=== PATIENT | male | born 1980 | race Caucasian/White ===

== ENCOUNTER 2017-09-23 09:28 | Outpatient (CLI) | payer MEDICAID ==
[~2017-09-23 09:28] MED LIST: BUSP10TA11 PO; CLIN-80 PO; DIVA-81 PO; ESCI20TA38 PO; GABA-338 PO; HYDR12.522 PO; LISI40TA4 PO; LORA-660 PO; METO200T3 PO; MORP30CP13 PO; NAS0.025NS NS; ZOLP5TAB8 PO
[2017-09-23] MEDS ORDERED: HYDR-565 PO (12:13)
[2017-09-23] MEDS ORDERED: METF500T PO (12:14)
[2017-09-23] MEDS ORDERED: silver sulfadiazine cream 50gm TP ONE (12:27)
== END 2017-09-23 12:55 | disposition home or self-care (01) ==
LOC: WOUND CARE 09:28 → EDSTATUS 10:00 → WOUND CARE 12:55
PROVIDERS: ATTEND Surgery
DX: E11.622 Type 2 diabetes mellitus with other skin ulcer (principal); L89.311 Pressure ulcer of right buttock, stage 1; L98.411 Non-pressure chronic ulcer of buttock limited to breakdown of skin; L97.821 Non-pressure chronic ulcer of other part of left lower leg limited to breakdown of skin; L97.811 Non-pressure chronic ulcer of other part of right lower leg limited to breakdown of skin; E11.65 Type 2 diabetes mellitus with hyperglycemia; E11.40 Type 2 diabetes mellitus with diabetic neuropathy, unspecified; I87.2 Venous insufficiency (chronic) (peripheral); I89.0 Lymphedema, not elsewhere classified; Z79.899 Other long term (current) drug therapy
CPT/HCPCS: 29581; 36416; 82948; 99215; A6212; A6223; A6441

== ENCOUNTER 2017-09-30 08:35 | Outpatient (CLI) | payer MEDICAID ==
[~2017-09-30 08:35] MED LIST changes: -CLIN-80 PO; +HYDR-565 PO; +METF500T PO; -MORP30CP13 PO
== END 2017-09-30 11:08 | disposition home or self-care (01) ==
LOC: WOUND CARE 08:35
PROVIDERS: ATTEND Surgery
DX: E11.622 Type 2 diabetes mellitus with other skin ulcer (principal); L89.311 Pressure ulcer of right buttock, stage 1; L98.411 Non-pressure chronic ulcer of buttock limited to breakdown of skin; L97.821 Non-pressure chronic ulcer of other part of left lower leg limited to breakdown of skin; L97.811 Non-pressure chronic ulcer of other part of right lower leg limited to breakdown of skin; E11.65 Type 2 diabetes mellitus with hyperglycemia; E11.40 Type 2 diabetes mellitus with diabetic neuropathy, unspecified; I87.2 Venous insufficiency (chronic) (peripheral); I89.0 Lymphedema, not elsewhere classified; Z79.899 Other long term (current) drug therapy
CPT/HCPCS: 29581; 36416; 82948; 93970; A6212; A6441

== ENCOUNTER 2017-10-07 08:25 | Outpatient (CLI) | payer MEDICAID | END 2017-10-07 10:15 | disposition home or self-care (01) | LOC: WOUND CARE 08:25 → EDSTATUS 08:30 → WOUND CARE 10:15 | PROVIDERS: ATTEND Surgery | DX: E11.622 Type 2 diabetes mellitus with other skin ulcer (principal); L89.311 Pressure ulcer of right buttock, stage 1; L98.411 Non-pressure chronic ulcer of buttock limited to breakdown of skin; L97.821 Non-pressure chronic ulcer of other part of left lower leg limited to breakdown of skin; L97.811 Non-pressure chronic ulcer of other part of right lower leg limited to breakdown of skin; E11.65 Type 2 diabetes mellitus with hyperglycemia; E11.40 Type 2 diabetes mellitus with diabetic neuropathy, unspecified; I87.2 Venous insufficiency (chronic) (peripheral); I89.0 Lymphedema, not elsewhere classified; Z79.899 Other long term (current) drug therapy | CPT/HCPCS: 29581; 36416; 82948; A6250; A6441 ==

== ENCOUNTER 2017-10-28 09:17 | Outpatient (CLI) | payer MEDICAID | END 2017-10-28 10:44 | disposition home or self-care (01) | LOC: WOUND CARE 09:17 → EDSTATUS 09:30 → WOUND CARE 10:44 | PROVIDERS: ATTEND Surgery | DX: E11.622 Type 2 diabetes mellitus with other skin ulcer (principal); L89.311 Pressure ulcer of right buttock, stage 1; L98.411 Non-pressure chronic ulcer of buttock limited to breakdown of skin; L97.821 Non-pressure chronic ulcer of other part of left lower leg limited to breakdown of skin; L97.811 Non-pressure chronic ulcer of other part of right lower leg limited to breakdown of skin; E11.65 Type 2 diabetes mellitus with hyperglycemia; E11.40 Type 2 diabetes mellitus with diabetic neuropathy, unspecified; I87.2 Venous insufficiency (chronic) (peripheral); I89.0 Lymphedema, not elsewhere classified; Z79.899 Other long term (current) drug therapy | CPT/HCPCS: 36416; 82948; 99215 ==

== ENCOUNTER 2017-11-15 09:35 | Outpatient (CLI) | payer MEDICAID | END 2017-11-15 11:34 | disposition home or self-care (01) | LOC: WOUND CARE 09:35 → EDSTATUS 10:30 → WOUND CARE 11:34 | PROVIDERS: ATTEND Surgery | DX: E11.622 Type 2 diabetes mellitus with other skin ulcer (principal); L89.311 Pressure ulcer of right buttock, stage 1; L98.411 Non-pressure chronic ulcer of buttock limited to breakdown of skin; L97.821 Non-pressure chronic ulcer of other part of left lower leg limited to breakdown of skin; L97.811 Non-pressure chronic ulcer of other part of right lower leg limited to breakdown of skin; E11.65 Type 2 diabetes mellitus with hyperglycemia; E11.40 Type 2 diabetes mellitus with diabetic neuropathy, unspecified; I87.2 Venous insufficiency (chronic) (peripheral); I89.0 Lymphedema, not elsewhere classified; Z79.899 Other long term (current) drug therapy | CPT/HCPCS: 36416; 82948; 99215; A6021; A6206; A6212; 29581; A6222 ==

== ENCOUNTER 2017-11-19 09:30 | Outpatient (CLI) | payer MEDICAID | END 2017-11-19 10:13 | disposition home or self-care (01) | LOC: WOUND CARE 09:30 → EDSTATUS 11:00 | PROVIDERS: ATTEND Surgery | DX: E11.622 Type 2 diabetes mellitus with other skin ulcer (principal); L89.311 Pressure ulcer of right buttock, stage 1; L98.411 Non-pressure chronic ulcer of buttock limited to breakdown of skin; L97.821 Non-pressure chronic ulcer of other part of left lower leg limited to breakdown of skin; L97.811 Non-pressure chronic ulcer of other part of right lower leg limited to breakdown of skin; E11.65 Type 2 diabetes mellitus with hyperglycemia; E11.40 Type 2 diabetes mellitus with diabetic neuropathy, unspecified; I87.2 Venous insufficiency (chronic) (peripheral); I89.0 Lymphedema, not elsewhere classified; Z79.899 Other long term (current) drug therapy | CPT/HCPCS: 36416; 82948; 99211; A6021; A6206; A6212 ==

== ENCOUNTER 2018-01-14 09:43 | Emergency (ER) | payer MEDICAID ==
[~2018-01-14] VITALS: Ht 180.3 cm; Wt 275.0 kg
[2018-01-14 09:49] VITALS: BP 140/97
[2018-01-14] MEDS ORDERED: CLIN150C8 PO (10:22)
== END 2018-01-14 10:43 | disposition home or self-care (01) ==
LOC: ER 09:44
DX: K08.89 Other specified disorders of teeth and supporting structures (principal); I10 Essential (primary) hypertension; E11.9 Type 2 diabetes mellitus without complications; Z88.0 Allergy status to penicillin; Z88.8 Allergy status to other drugs, medicaments and biological substances; Z79.84 Long term (current) use of oral hypoglycemic drugs; Z79.899 Other long term (current) drug therapy
CPT/HCPCS: 99283

== ENCOUNTER 2018-01-26 09:09 | Outpatient (CLI) | payer MEDICAID ==
[~2018-01-26 09:09] MED LIST changes: +CLIN150C8 PO
== END 2018-01-26 11:24 | disposition home or self-care (01) ==
LOC: WOUND CARE 09:09 → EDSTATUS 09:30 → WOUND CARE 11:24
PROVIDERS: ATTEND Surgery
DX: E11.622 Type 2 diabetes mellitus with other skin ulcer (principal); L97.811 Non-pressure chronic ulcer of other part of right lower leg limited to breakdown of skin; E11.65 Type 2 diabetes mellitus with hyperglycemia; E11.40 Type 2 diabetes mellitus with diabetic neuropathy, unspecified; I87.2 Venous insufficiency (chronic) (peripheral); I89.0 Lymphedema, not elsewhere classified; Z79.899 Other long term (current) drug therapy
CPT/HCPCS: 99215; A6196; A6222; A6446

== ENCOUNTER 2018-12-10 23:59 | Emergency (ER) | payer MEDICAID ==
[~2018-12-10] VITALS: Ht 180.3 cm; Wt 272.7 kg
[~2018-12-10 23:59] MED LIST changes: -CLIN150C8 PO; +HYDR-4353 PO; -HYDR-565 PO
[2018-12-11 00:21] VITALS: BP 185/95
[2018-12-11] MEDS ORDERED: IBUP-1984 PO (01:10)
[2018-12-11] MEDS ORDERED: ibuprofen tablet 400 MG TABLET PO ONE (01:20)
== END 2018-12-11 01:27 | disposition home or self-care (01) ==
LOC: ER 12-11
DX: S93.501A Unspecified sprain of right great toe, initial encounter (principal); I10 Essential (primary) hypertension; E11.9 Type 2 diabetes mellitus without complications; F31.9 Bipolar disorder, unspecified; Z98.890 Other specified postprocedural states; Z60.2 Problems related to living alone; Z88.0 Allergy status to penicillin; Z88.1 Allergy status to other antibiotic agents; Z88.6 Allergy status to analgesic agent; Z88.8 Allergy status to other drugs, medicaments and biological substances; Z91.041 Radiographic dye allergy status; Z79.84 Long term (current) use of oral hypoglycemic drugs; Z79.899 Other long term (current) drug therapy; W22.8XXA Striking against or struck by other objects, initial encounter; Y93.89 Activity, other specified; Y92.89 Other specified places as the place of occurrence of the external cause; Y99.8 Other external cause status
CPT/HCPCS: 73660; 99284

== ENCOUNTER 2019-08-09 08:52 | Emergency (ER) | payer MEDICAID ==
[~2019-08-09] VITALS: Ht 177.8 cm; Wt 277.7 kg
[~2019-08-09 08:52] MED LIST changes: -ESCI20TA38 PO; +ESCI20TA45 PO
[2019-08-09 08:57] VITALS: BP 217/116
--- NOTE | 2019-08-09 09:09 | NUR ---
pt back from [facility] and stated is taking intermittent clindamycin on 07/30 for chronic tooth infection. pt stated sleeps 18-20 hours a day and has missed a few doses.
--- NOTE | 2019-08-09 09:19 | NUR ---
Pt able to speak in full word sentances with entire conversation. Pt able stand and walk around without difficulty.
== END 2019-08-09 09:49 | disposition home or self-care (01) ==
LOC: ER 08:52
DX: J06.9 Acute upper respiratory infection, unspecified (principal); I10 Essential (primary) hypertension; E11.9 Type 2 diabetes mellitus without complications; R53.83 Other fatigue; F31.9 Bipolar disorder, unspecified; Z88.0 Allergy status to penicillin; Z88.1 Allergy status to other antibiotic agents; Z88.8 Allergy status to other drugs, medicaments and biological substances
CPT/HCPCS: 71046; 99283

== ENCOUNTER 2020-02-02 16:03 | Emergency (ER) | payer MEDICAID ==
[~2020-02-02] VITALS: Ht 180.3 cm; Wt 290.8 kg
[2020-02-02] MEDS ORDERED: DOXY100C77 PO (17:45)
--- NOTE | 2020-02-02 17:53 | NUR ---
rechecked pt's vs per LENO ordonez, pt denies chest pain or SOB
[2020-02-02 17:58] VITALS: BP 174/98
== END 2020-02-02 18:02 | disposition home or self-care (01) ==
LOC: ER 16:04
DX: L72.8 Other follicular cysts of the skin and subcutaneous tissue (principal); I10 Essential (primary) hypertension; E11.9 Type 2 diabetes mellitus without complications; F31.9 Bipolar disorder, unspecified; Z98.890 Other specified postprocedural states; Z60.2 Problems related to living alone; Z88.0 Allergy status to penicillin; Z88.8 Allergy status to other drugs, medicaments and biological substances; Z79.899 Other long term (current) drug therapy; Z79.2 Long term (current) use of antibiotics
CPT/HCPCS: 99284

== ENCOUNTER 2020-05-23 07:27 | Outpatient (CLI) | payer MEDICAID ==
[~2020-05-23 07:27] MED LIST changes: -ESCI20TA45 PO; +ESCI20TA56 PO; +LORA-657 PO; -LORA-660 PO
== END 2020-05-23 23:59 | disposition home or self-care (01) ==
LOC: WOUND CARE 07:27 → EDSTATUS 08:20 → WOUND CARE 23:59
PROVIDERS: ATTEND Nurse Practitioner
DX: B37.2 Candidiasis of skin and nail (principal); J45.909 Unspecified asthma, uncomplicated; I10 Essential (primary) hypertension; E11.9 Type 2 diabetes mellitus without complications; L05.91 Pilonidal cyst without abscess; F41.9 Anxiety disorder, unspecified; F32.9 Major depressive disorder, single episode, unspecified; Z79.2 Long term (current) use of antibiotics; Z79.899 Other long term (current) drug therapy; Z98.890 Other specified postprocedural states
CPT/HCPCS: 82948; G0463

== ENCOUNTER 2020-08-28 22:06 | Emergency (ER) | payer MEDICAID ==
[~2020-08-28] VITALS: Ht 180.3 cm; Wt 286.4 kg
[~2020-08-28 22:06] MED LIST changes: +ESCI20TA39 PO; -ESCI20TA56 PO; +LISI40TA13 PO; -LISI40TA4 PO
[2020-08-28 22:08] VITALS: BP 190/109
[2020-08-28] MEDS ORDERED: DOXYCYCLINE 100MG CAPSULE PO STA (23:40)
[2020-08-28] MEDS ORDERED: DOXY100C43 PO (23:41)
[2020-08-28] MEDS ORDERED: HYDROcodone/acetaminophen 10/325mg tab PO ONE (23:55)
== END 2020-08-28 23:59 | disposition home or self-care (01) ==
LOC: ER 22:07
DX: L02.212 Cutaneous abscess of back [any part, except buttock and flank] (principal); I10 Essential (primary) hypertension; E11.9 Type 2 diabetes mellitus without complications; F31.9 Bipolar disorder, unspecified; Z60.2 Problems related to living alone; Z91.041 Radiographic dye allergy status; Z88.0 Allergy status to penicillin; Z88.8 Allergy status to other drugs, medicaments and biological substances; Z79.84 Long term (current) use of oral hypoglycemic drugs; Z79.899 Other long term (current) drug therapy
CPT/HCPCS: 10060; 76882; 99284

== ENCOUNTER 2023-01-02 06:30 | Inpatient (IN) | payer MEDICAID ==
[~2023-01-02] VITALS: Ht 180.3 cm; Wt 275.0 kg
[2023-01-02] MEDS ORDERED: normal saline 1000ML IV soln IVB STA (07:13)
[2023-01-02] MEDS ORDERED: diphenhydrAMINE 50 mg/ml inj IV ONE (07:15)
[2023-01-02] MEDS ORDERED: famotidine/PF 10 mg/ml inj IV ONE (07:15)
[2023-01-02] MEDS ORDERED: methylPREDNISolone sod succ 125mg/2ml vial IV ONE (07:15)
[2023-01-02] MEDS ORDERED: ondansetron 4 MG/5 ML oral solution 5ml CUP PO ONE (07:20)
[2023-01-02] MEDS ORDERED: albuterol 2.5 MG/3 ML nebule CONTNEB PRN (07:20)
[2023-01-02] MEDS ORDERED: ipratropium 0.5 MG/2.5ML nebule IH ONE (07:20)
[2023-01-02] MEDS ORDERED: aspirin 325mg tablet, delayed-release (Ecotrin) PO ONE (07:35)
[2023-01-02] MEDS ORDERED: ondansetron 4mg rapidly disintigrating tab PO ONE (07:55)
[2023-01-02 08:03] VITALS: PULSE 85; RESP 17; O2SAT 89
[2023-01-02 08:06] LABS: BASOPHILS # (AUTO) 0.1 X10'3 (0-0.2); BASOPHILS % (AUTO) 0.6 % (0-1); EOSINOPHILS # (AUTO) 0.2 X10'3 (0-0.9); EOSINOPHILS % (AUTO) 1.7 % (0-6); HEMATOCRIT 47.5 % (42.0-52.0); HEMOGLOBIN 15.3 g/dl (14.0-17.9); LYMPHOCYTES # (AUTO) 2.2 X10'3 (1.1-4.8); LYMPHOCYTES % (AUTO) 18.7 % (21-51); MEAN CORPUSCULAR HEMOGLOBIN 26.1 PG (27.0-31.0); MEAN CORPUSCULAR HGB CONC 32.2 g/dL (33.0-36.5); MEAN CORPUSCULAR VOLUME 81.2 FL (78-98); MEAN PLATELET VOLUME 8.1 FL (7.4-10.4); MONOCYTES # (AUTO) 0.8 X10'3 (0-0.9); MONOCYTES % (AUTO) 7.1 % (2-12); NEUTROPHILS # (AUTO) 8.6 X10'3 (1.8-7.7); NEUTROPHILS % (AUTO) 71.9 % (42-75); PLATELET COUNT 241 X10'3 (140-440); RED BLOOD COUNT 5.85 X10'6 (4.70-6.10); RED CELL DISTRIBUTION WIDTH 16.5 % (11.5-14.5)
[2023-01-02 08:22] LABS: ALANINE AMINOTRANSFERASE 26 U/L (12-78); ALBUMIN 2.5 G/DL (3.4-5.0); ALBUMIN/GLOBULIN RATIO 0.4 (1.1-1.5); ALKALINE PHOSPHATASE 92 IU/L (46-116); ANION GAP 9 (8-16); ASPARTATE AMINO TRANSFERASE 16 U/L (10-37); BILIRUBIN,TOTAL 0.8 MG/DL (0.1-1.0); BLOOD UREA NITROGEN 14 MG/DL (7-18); BUN/CREATININE RATIO 12.1 (10.0-20.0); CALCIUM 8.9 MG/DL (8.5-10.1); CHLORIDE 96 MMOL/L (99-107); CREATININE 1.16 MG/DL (0.60-1.10); GLUCOSE 344 MG/DL (70-104); POTASSIUM 3.7 MMOL/L (3.5-5.1); SODIUM 134 MMOL/L (135-145); TOTAL CARBON DIOXIDE 29.4 MMOL/L (24-32); TOTAL PROTEIN 8.3 G/DL (6.4-8.2); eCRCL 89 ML/MIN; eGFR 69 ML/MIN
[2023-01-02 08:23] VITALS: PULSE 76; RESP 18; O2SAT 96
[2023-01-02 08:30] LABS: ABG BASE EXCESS 2.3 mmol/L (-2.0-2.0); ABG HCO3 25.7 mmol/L (22.0-26.0); ABG OXYGEN SATURATION 82.3 % (94-97); ABG PCO2 (T) 36.2 mmHg (35.0-48.0); ABG PH (T) 7.469 (7.340-7.440); ABG PO2 (T) 45.6 mmHg (75.0-100.0); ALLEN'S TEST POSITIVE; FCOHb 1.4 % (0.0-3.9); FHHb 17.4 % (0.0-5.0); FMetHb 0.1 % (0.0-1.5); FO2Hb 81.1 % (94-97); MODE ROOM AIR; TOTAL HEMOGLOBIN 15.5 G/dl (14.0-17.9)
[2023-01-02 08:30] LABS: C-REACTIVE PROTEIN 8.29 MG/DL (0.0-0.5); ETHANOL < 10 MG/DL (<10); PHOSPHORUS 3.2 MG/DL (2.3-4.5); PRO BRAIN NATRIURETIC PEPTIDE 2560 PG/ML (0-125)
[2023-01-02 08:38] LABS: D-DIMER 1.59 MG/L FEU (0-0.50); INR 1.1 INR; PROTHROMBIN TIME 11.3 SECONDS (9.0-12.0)
[2023-01-02 08:44] LABS: APTT 28 SECONDS (22-32)
[2023-01-02] MEDS ORDERED: furosemide 10 MG/1 ML 10ml inj IV ONE (09:10)
[2023-01-02] MEDS ORDERED: albumin (human) 25% 100 ML IV solution IV ONE (09:15)
[2023-01-02 11:28] LABS: BILIRUBIN,URINE NEGATIVE (Neg); CLARITY,URINE CLEAR (Clear); COLOR,URINE YELLOW (Yellow); GLUCOSE, URINE 100 mg/dl (Neg); KETONES,URINE NEGATIVE (Neg); LEUKOCYTE ESTERASE ,URINE NEGATIVE (Neg); NITRITES, URINE NEGATIVE (Neg); OCCULT BLOOD,URINE NEGATIVE (Neg); PH,URINE 6.5 (4.8-8.0); PROTEIN,URINE 100 mg/dl (Neg); UROBILINOGEN,URINE 0.2 E.U/dL (0.2-1.0)
[2023-01-02] MEDS ORDERED: enoxaparin 100mg/ml syringe SUBCUT ONE (11:30)
[2023-01-02 11:31] LABS: UA COLLECTION TYPE CLN CATCH MIDSTREAM
[2023-01-02 11:32] LABS: BACTERIA,URINE NONE SEEN /HPF (Neg); MUCUS STRANDS NONE SEEN /LPF (Neg); RBC,URINE 0-2 /HPF (0-2); SQUAMOUS EPITHELIAL CELL,UR FEW /LPF (FEW); WBC,URINE NONE SEEN /HPF (0-4)
[2023-01-02] MEDS ORDERED: insulin regular, human 10 units/0.1 ml syringe SQ ONE ×2 (11:35→17:25)
[2023-01-02] MEDS ORDERED: PERFLUTREN PROTEIN-A MICROSPHR (Optison) 0.22 MG/ML 3ML VIAL IV ONE (11:35)
[2023-01-02] MEDS ORDERED: potassium Cl 20 mEq SR tablet PO PRN ×2 (11:35)
[2023-01-02] MEDS ORDERED: magnesium Cl slow-release 64mg tablet PO PRN (11:35)
[2023-01-02] MEDS ORDERED: acetaminophen 325mg tablet PO PRN (11:35)
[2023-01-02] MEDS ORDERED: magnesium 2GM in 50ml NS 50 ML IV PRN (11:35)
[2023-01-02] MEDS ORDERED: ondansetron/PF 4mg/2ml inj IV PRN (11:35)
[2023-01-02] MEDS ORDERED: potassium Cl 40MEQ/1/2NS 520ml 520 ML IV PRN (11:35)
[2023-01-02] MEDS ORDERED: magnesium 4gm in 100ml NS 100 ML IV PRN (11:35)
[2023-01-02 11:44] LABS: URINE AMPHETAMINE SCREEN NEGATIVE (Neg); URINE BARBITUATE SCREEN NEGATIVE (Neg); URINE BENZODIAZEPINES SCREEN NEGATIVE (Neg); URINE CANNABINOID SCREEN NEGATIVE (Neg); URINE COCAINE SCREEN NEGATIVE (Neg); URINE METHADONE SCREEN NEGATIVE (Neg); URINE OPIATE SCREEN NEGATIVE (Neg); URINE PHENCYCLIDINE SCREEN NEGATIVE (Neg)
--- NOTE | 2023-01-02 12:05 | NUR ---
PAGED HOSPITALIST AND ASKED TO HAVE BARIBED ORDERED SECONDARY TO PTS WEIGHT OF 600LBS
[2023-01-02 12:10] LABS: MAGNESIUM 1.7 MG/DL (1.5-2.4)
--- NOTE | 2023-01-02 12:27 | NUR ---
Patient refused insulin. Blood sugar was 427mg/dl. Patient states "I never had insulin and will never have one. My grandma from insulin!"
--- NOTE | 2023-01-02 12:44 | NUR ---
Paged Dr. Velasquez PAGER ID: [phone] MESSAGE: LEROY Avila RN RE: Joe Mccollum. BS 427 mg/dl -pt refused insulin but willing to take metformin. His d-dimer also elevated, do you want us to do CTA chest to r/o PE?
--- NOTE | 2023-01-02 13:09 | NUR ---
Dr. Velasquez spoke to the patient at bedside about the importance of taking the insulin for his high blood sugar. Patient eventually agreed to take the insulin ordered
--- NOTE | 2023-01-02 13:57 | NUR ---
JUDIT barnard came to the room told me and the patient that they could not do the VQ scan because patient is allergic to iodine contrast. JUDIT barnard said he will let Dr. Velasquez know
[2023-01-02] MEDS ORDERED: DEXTROSE 15 GM of carb/4 tabs (each vial/BOTTLE has 4 tablets) PO PRN ×2 (16:00)
[2023-01-02] MEDS ORDERED: glucagon, human recombinant 1mg kit SUBCUT PRN (16:00)
[2023-01-02] MEDS ORDERED: MESSAGE TO PHARMACY PO ONE (16:00)
[2023-01-02] MEDS ORDERED: dextrose 50%-water 50ml dispensing syringe IV PRN ×2 (16:00)
[2023-01-02 16:40] LABS: HEMOGLOBIN A1C > 12.0 % (4.5-6.2)
--- NOTE | 2023-01-02 17:28 | NUR ---
Dr. Velasquez confirmed to me that she was aware that [facility] could not do the VQ scan due to iodine allergy
--- NOTE | 2023-01-02 18:18 | NUR ---
[facility] CONFORMATION #[phone] @17:20
[2023-01-02] MEDS: K and/or MAG REPLACEMENT MC SCH (20:00)
[2023-01-02] MEDS ORDERED: heparin, porcine 5000 units/ml vial IV SCH (20:00)
[2023-01-02] MEDS: enoxaparin 100mg/ml syringe SUBCUT SCH (21:29)
[2023-01-02 21:30] VITALS: BP 127/72; PULSE 81; RESP 17; TEMP 97.6; O2SAT 90
--- NOTE | 2023-01-02 21:30 | NUR ---
Pt admitted from the ER, came up in his electric wheelchair accompanied with ER staff. Pt able to transfer self, uses cane when ambulating. A+Ox4.
[2023-01-02] MEDS: insulin glargine (Lantus) pen - multi-dose SQ SCH (21:44)
--- NOTE | 2023-01-02 22:00 | NUR ---
Pt is on 5L NC oxygen saturation is 95-98%. He was admitted s/p allergic reaction, denies SOB. VSS.
[2023-01-03] MEDS: insulin Lispro (HumaLOG) vial - multi-dose SQ SCH ×5 (01:18→21:46)
--- NOTE | 2023-01-03 01:20 | NUR ---
Spoke with Dr. Dobson regarding pts Humalog. Nurse did not have medication at 2100 to cover FSBG of 533. FSBG at 0115 was 457, Pt will receive [address] dobson gave order to give humalog insulin 10 units, then check FSBG in 1 hour and follow hyperglycemic protocol.
[2023-01-03 02:00] VITALS: BP 142/67; PULSE 65; RESP 19; TEMP 97.7; O2SAT 95
--- NOTE | 2023-01-03 04:11 | NUR ---
Pt has been non compliant with CPAP this shift multiple time throughout the night.
--- NOTE | 2023-01-03 06:35 | NUR ---
Problems reprioritized. Patient report given, questions answered & plan of care reviewed with Liseth HAMILTON. Pt stable at shift change.
--- NOTE | 2023-01-03 06:46 | NUR ---
Patient in room PCU 3018. I have received report from Michelle PAUL and had the opportunity to ask questions and assume patient care.
[2023-01-03 07:00] VITALS: BP 133/69; PULSE 61; RESP 15; TEMP 98.1; O2SAT 98
[2023-01-03] MEDS: pantoprazole 40mg Tablet.DR PO SCH (07:52)
[2023-01-03] MEDS: K and/or MAG REPLACEMENT MC SCH ×2 (07:53→20:00)
[2023-01-03] MEDS: enoxaparin 100mg/ml syringe SUBCUT SCH ×2 (07:53→19:55)
[2023-01-03 07:55] LABS: BASOPHILS % (AUTO) 0.1 % (0-1); EOSINOPHILS % (AUTO) 0 % (0-6); HEMATOCRIT 45.9 % (42.0-52.0); HEMOGLOBIN 14.7 g/dl (14.0-17.9); LYMPHOCYTES # (AUTO) 1.7 X10'3 (1.1-4.8); LYMPHOCYTES % (AUTO) 14.1 % (21-51); MEAN CORPUSCULAR HEMOGLOBIN 26.2 PG (27.0-31.0); MEAN CORPUSCULAR HGB CONC 31.9 g/dL (33.0-36.5); MEAN PLATELET VOLUME 8.3 FL (7.4-10.4); MONOCYTES # (AUTO) 1.1 X10'3 (0-0.9); MONOCYTES % (AUTO) 8.8 % (2-12); NEUTROPHILS # (AUTO) 9.3 X10'3 (1.8-7.7); PLATELET COUNT 238 X10'3 (140-440); RED CELL DISTRIBUTION WIDTH 16.5 % (11.5-14.5); WHITE BLOOD COUNT 12.1 X10'3 (4.5-11.0)
[2023-01-03 08:11] LABS: ALBUMIN 2.6 G/DL (3.4-5.0); ANION GAP 8 (8-16); BLOOD UREA NITROGEN 29 MG/DL (7-18); BUN/CREATININE RATIO 22.3 (10.0-20.0); CALCIUM 8.5 MG/DL (8.5-10.1); CHLORIDE 97 MMOL/L (99-107); MAGNESIUM 2.3 MG/DL (1.5-2.4); POTASSIUM 4.9 MMOL/L (3.5-5.1); SODIUM 133 MMOL/L (135-145); TOTAL CARBON DIOXIDE 28.5 MMOL/L (24-32); eCRCL 80 ML/MIN; eGFR 61 ML/MIN
[2023-01-03 08:13] LABS: GLUCOSE 425 MG/DL (70-104)
--- NOTE | 2023-01-03 08:17 | NUR ---
PAGER ID: [phone] MESSAGE: [phone] Ketty Mccollum Critical glucose of 425. Thank you Liseth HAMILTON [phone]
[2023-01-03 11:00] VITALS: BP 120/70; PULSE 63; RESP 11; TEMP 97.5; O2SAT 92
--- NOTE | 2023-01-03 11:49 | NUR ---
O2 Sat at rest on room air: 82% If below 89%: Recovery O2 Sat at rest on 3 LPM: 92 % via nasal cannula
--- NOTE | 2023-01-03 13:04 | NUR ---
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
--- NOTE | 2023-01-03 13:28 | NUR ---
Per EMR pt with T2DM, poorly controlled with A1c >12.0%. Pt seen at bedside for written and verbal DM education. Pt states he sees a physician q two months for DM management. Pt reports taking his DM medications per rx without issues and states he was just started on a second PO DM medication in November though he can't remember what it's called. Pt expresses desire to be accepting of insulin to assist with BG management. Per pt he has an [employer] caregiver that provides his medications and prepares his meals. Pt states he knows what to do and how to eat to better manage his diabetes and reports not being a big eater stating he typically eats smaller portions and monitors his carbohydrate intake. Pt does report desire to decrease soda intake to help with BG management, stating he typically has one can of soda every other day. Pt states he hasn't checked his blood sugars for about a month d/t the battery going out on his glucometer though states his [employer] caregiver is going to assist in getting him a new battery. Pt states he sometimes goes to [employer] for walking and swimming for his exercise. All of patient's questions were answered at this time. RD contact information provided and pt encouraged to reach out if needed. Pt reports a low appetite WEIGHTER though this has resolved. Pt reports food allergy to peas, green beans, and fish-EMR updated and d/w dietary. Additional food preferences were d/w dietary, see below. Pt agrees to double protein with meals for satiety and to assist with meeting estimated nutrient needs, d/w dietary. Pt reports some difficulty chewing d/t missing upper teeth though denies need for texture modification. LBM 8/18 per EMR. Per pt he typically has a BM q 2-3 days with difficult management of BM regularity secondary to IBS. Pt states he will probably have a BM tomorrow. Will continue to follow. Recommendations: 1) Continue CHO controlled diet 2) [place] food preferences: apple/orange juice and double eggs WB, double meat BIDLD, chicken broth TID; No: milk to drink, coffee, nuts, toast, or rolls 3) Routine bowel care 4) Weekly scaled weights Addendum: 01/03/23 at [address] Amended: Links added.
[2023-01-03 15:00] VITALS: BP 118/58; PULSE 62; RESP 22; TEMP 98; O2SAT 93
[2023-01-03 18:00] VITALS: BP 117/57; PULSE 69; RESP 20; TEMP 98; O2SAT 92
--- NOTE | 2023-01-03 18:30 | NUR ---
Problems reprioritized. Patient report given, questions answered & plan of care reviewed with Michelle PAUL.
[2023-01-03] MEDS: insulin glargine (Lantus) pen - multi-dose SQ SCH (21:45)
[2023-01-03 22:00] VITALS: BP 135/63; PULSE 75; RESP 18; TEMP 97; O2SAT 92
[2023-01-04 01:57] VITALS: BP 112/49; PULSE 79; RESP 18; TEMP 97.7; O2SAT 92
--- NOTE | 2023-01-04 06:15 | NUR ---
Problems reprioritized. Patient report given, questions answered & plan of care reviewed with Liseth HAMILTON. Pt stable at shift change.
--- NOTE | 2023-01-04 06:30 | NUR ---
Patient in room PCU 3018. I have received report from Michelle PAUL and had the opportunity to ask questions and assume patient care.
[2023-01-04 06:44] LABS: BASOPHILS # (AUTO) 0.1 X10'3 (0-0.2); BASOPHILS % (AUTO) 0.5 % (0-1); EOSINOPHILS # (AUTO) 0.2 X10'3 (0-0.9); EOSINOPHILS % (AUTO) 1.3 % (0-6); HEMATOCRIT 47.2 % (42.0-52.0); HEMOGLOBIN 14.9 g/dl (14.0-17.9); LYMPHOCYTES # (AUTO) 2.9 X10'3 (1.1-4.8); LYMPHOCYTES % (AUTO) 23.8 % (21-51); MEAN CORPUSCULAR HEMOGLOBIN 25.9 PG (27.0-31.0); MEAN CORPUSCULAR HGB CONC 31.5 g/dL (33.0-36.5); MEAN CORPUSCULAR VOLUME 82.2 FL (78-98); MEAN PLATELET VOLUME 8.3 FL (7.4-10.4); MONOCYTES # (AUTO) 0.9 X10'3 (0-0.9); MONOCYTES % (AUTO) 7.1 % (2-12); NEUTROPHILS # (AUTO) 8.2 X10'3 (1.8-7.7); NEUTROPHILS % (AUTO) 67.3 % (42-75); PLATELET COUNT 231 X10'3 (140-440); RED BLOOD COUNT 5.74 X10'6 (4.70-6.10); RED CELL DISTRIBUTION WIDTH 16.3 % (11.5-14.5); WHITE BLOOD COUNT 12.2 X10'3 (4.5-11.0)
[2023-01-04 06:56] LABS: ALBUMIN 2.5 G/DL (3.4-5.0); ANION GAP 6 (8-16); BLOOD UREA NITROGEN 32 MG/DL (7-18); CALCIUM 8.8 MG/DL (8.5-10.1); CHLORIDE 101 MMOL/L (99-107); GLUCOSE 222 MG/DL (70-104); MAGNESIUM 2.2 MG/DL (1.5-2.4); POTASSIUM 3.9 MMOL/L (3.5-5.1); SODIUM 135 MMOL/L (135-145); TOTAL CARBON DIOXIDE 27.9 MMOL/L (24-32); eCRCL 104 ML/MIN; eGFR 82 ML/MIN
[2023-01-04 07:00] VITALS: BP 127/68; PULSE 81; RESP 20; TEMP 97.7; O2SAT 90
[2023-01-04] MEDS: enoxaparin 100mg/ml syringe SUBCUT SCH (07:51)
[2023-01-04] MEDS: K and/or MAG REPLACEMENT MC SCH (07:51)
[2023-01-04] MEDS: pantoprazole 40mg Tablet.DR PO SCH (07:51)
[2023-01-04] MEDS: insulin Lispro (HumaLOG) vial - multi-dose SQ SCH ×2 (09:20→12:57)
--- NOTE | 2023-01-04 10:51 | NUR ---
PRESSURE ULCER EDUCATION: DEFINITION: A pressure ulcer is an area of skin that breaks down when you stay in one position too long. The constant pressure against the skin reduces the blood flow to that area and the affected tissue dies. CAUSES: "Being bedridden or in a wheelchair "Fragile skin "Having a chronic condition, such as diabetes or vascular disease "Inability to move certain parts of your body without assistance "Older age "Incontinence of urine or stool SYMPTOMS: "A reddened area that DOES NOT turn white when pressed on - this can be the beginning of a pressure ulcer "A blister, deep sore or a crater - these can be advanced pressure ulcers FIRST AID: "Relieve the pressure on this area "Keep the area clean and dry "Call your primary doctor if you see any of the above symptoms "DO NOT massage the area "DO NOT use a donut shaped or ring shaped pillow- these actually interfere with the blood flow and cause complications PREVENTION: "Check for pressure ulcers everyday "Change position at least every two hours to relieve pressure "Use items that help relieve pressure- pillows, sheepskin, foam padding, and powders. "Keep skin clean and dry "Eat healthy well balanced meals "Exercise daily IF YOU SEE ANY OF THESE SYMPTOMS WHILE IN THE HOSPITAL - TELL YOUR NURSE IMMEDIATELY. IF YOU SEE ANY OF THESE SYMPTOMS WHILE AT HOME OR HAVE ANY QUESTIONS OR CONCERNS ABOUT PRESSURE ULCERS - CALL YOUR PRIMARY DOCTOR IMMEDIATELY. Addendum: 01/04/23 at 1051 by Diya Franco RN Amended: Links added.
[2023-01-04 11:00] VITALS: BP 123/72; PULSE 81; RESP 20; TEMP 97.6; O2SAT 93
[2023-01-04] MEDS ORDERED: SITA25TA3 PO (11:57)
--- NOTE | 2023-01-04 13:30 | NUR ---
Patient discharged home with all belongings and discharge instructions. IV removed and tele monitor removed and returned to telecom billing analyst. Escourted out via personal electric wheel chair.
--- NOTE | 2023-01-04 16:06 | NUR ---
AGREE WITH CANDLE MAKER AM ASSESSMENT
[2023-01-04] MEDS ORDERED: nystatin 15 GM powder TP SCH (20:00)
== END 2023-01-04 13:30 | disposition home or self-care (01) | DRG 198 ==
LOC: ER 06:31 → ED HOLD 11:43 → EDBEDREQ 20:02 → PCU 3S 21:53
PROVIDERS: ADMIT Internal Medicine; ATTEND Internal Medicine
PROC: 5A09357 Assistance with Respiratory Ventilation, Less than 24 Consecutive Hours, Continuous Positive Airway Pressure (ICD-10-PCS; principal; 2023-01-02)
DX: I24.8 Other forms of acute ischemic heart disease (principal); J96.21 Acute and chronic respiratory failure with hypoxia; I50.31 Acute diastolic (congestive) heart failure; J45.901 Unspecified asthma with (acute) exacerbation; Z68.45 Body mass index [BMI] 70 or greater, adult; E87.1 Hypo-osmolality and hyponatremia; Z20.822 Contact with and (suspected) exposure to COVID-19; E11.65 Type 2 diabetes mellitus with hyperglycemia; Z60.2 Problems related to living alone; I11.0 Hypertensive heart disease with heart failure; E66.01 Morbid (severe) obesity due to excess calories; G47.00 Insomnia, unspecified; F32.A Depression, unspecified; T50.2X5A Adverse effect of carbonic-anhydrase inhibitors, benzothiadiazides and other diuretics, initial encounter; K30 Functional dyspepsia; R20.2 Paresthesia of skin; F41.9 Anxiety disorder, unspecified; G47.33 Obstructive sleep apnea (adult) (pediatric); G89.4 Chronic pain syndrome; Z79.82 Long term (current) use of aspirin; Z79.84 Long term (current) use of oral hypoglycemic drugs; Z88.0 Allergy status to penicillin; Z91.041 Radiographic dye allergy status; Z91.030 Bee allergy status; Z79.899 Other long term (current) drug therapy; Y92.89 Other specified places as the place of occurrence of the external cause
CPT/HCPCS: 36415; 36600; 71045; 80048; 80053; 80305; 80320; 81001; 82803; 82948; 83036; 83735; 83880; 84100; 84484; 85018; 85025; 85379; 85610; 85651; 85730; 86140; 87081; 87811; 93005; 93306; 94640; 94660; 94760; 96374; 96375; 99285; A4615; A4620; A6250; G0378; J1650; J1815; J1940; J2930; J3490; J7030; P9047

== ENCOUNTER 2023-10-13 00:33 | Emergency (ER) | payer MEDICAID ==
[~2023-10-13] VITALS: Ht 177.8 cm; Wt 255.4 kg
[2023-10-13 00:38] VITALS: TEMP 97.8
[2023-10-13] MEDS: sulfamethoxazole/trimethoprim DS (800/160mg) tablet PO ONE (01:16)
[2023-10-13] MEDS: bacitracin 15gm ointment TP ONE (01:16)
[2023-10-13] MEDS ORDERED: NEOM1OIN8 TOP (01:18)
[2023-10-13] MEDS ORDERED: SULF1TAB45 PO (01:18)
[2023-10-13 01:36] VITALS: BP 140/78; PULSE 80; RESP 18; O2SAT 97
== END 2023-10-13 01:41 | disposition home or self-care (01) ==
LOC: ER 00:34
DX: Z48.01 Encounter for change or removal of surgical wound dressing (principal); Z91.041 Radiographic dye allergy status; Z88.0 Allergy status to penicillin; Z88.8 Allergy status to other drugs, medicaments and biological substances; Z91.018 Allergy to other foods; I10 Essential (primary) hypertension; E11.9 Type 2 diabetes mellitus without complications; F39 Unspecified mood [affective] disorder; Z60.2 Problems related to living alone
CPT/HCPCS: 99283

== ENCOUNTER 2023-12-28 00:21 | Emergency (ER) | payer MEDICAID ==
[~2023-12-28] VITALS: Ht 180.3 cm; Wt 256.8 kg
[~2023-12-28 00:21] MED LIST changes: +NEOM1OIN8 TOP
[2023-12-28 01:04] LABS: BASOPHILS # (AUTO) 0.1 X10'3 (0-0.2); BASOPHILS % (AUTO) 0.5 % (0-1); EOSINOPHILS # (AUTO) 0.1 X10'3 (0-0.9); EOSINOPHILS % (AUTO) 1.1 % (0-6); HEMATOCRIT 46.7 % (42.0-52.0); HEMOGLOBIN 14.6 g/dl (14.0-17.9); LYMPHOCYTES # (AUTO) 1.4 X10'3 (1.1-4.8); LYMPHOCYTES % (AUTO) 14.8 % (21-51); MEAN CORPUSCULAR HEMOGLOBIN 24.2 PG (27.0-31.0); MEAN CORPUSCULAR HGB CONC 31.2 g/dL (33.0-36.5); MEAN CORPUSCULAR VOLUME 77.6 FL (78-98); MEAN PLATELET VOLUME 7.6 FL (7.4-10.4); MONOCYTES % (AUTO) 10.5 % (2-12); NEUTROPHILS % (AUTO) 73.1 % (42-75); PLATELET COUNT 240 X10'3 (140-440); RED BLOOD COUNT 6.01 X10'6 (4.70-6.10); RED CELL DISTRIBUTION WIDTH 17.3 % (11.5-14.5); WHITE BLOOD COUNT 9.5 X10'3 (4.5-11.0)
[2023-12-28] MEDS: normal saline 1000ml 1,000 ML IV ONE (01:19)
[2023-12-28 01:26] LABS: ALANINE AMINOTRANSFERASE 19 U/L (12-78); ALBUMIN 2.4 G/DL (3.4-5.0); ALBUMIN/GLOBULIN RATIO 0.4 (1.1-1.5); ALKALINE PHOSPHATASE 91 IU/L (46-116); ANION GAP 7 (8-16); ASPARTATE AMINO TRANSFERASE 18 U/L (10-37); BILIRUBIN,TOTAL 1.3 MG/DL (0.1-1.0); BLOOD UREA NITROGEN 15 MG/DL (7-18); BUN/CREATININE RATIO 12.6 (10.0-20.0); CALCIUM 8.8 MG/DL (8.5-10.1); CHLORIDE 100 MMOL/L (99-107); CREATININE 1.19 MG/DL (0.60-1.10); GLUCOSE 234 MG/DL (70-104); POTASSIUM 3.4 MMOL/L (3.5-5.1); SODIUM 135 MMOL/L (135-145); TOTAL CARBON DIOXIDE 27.7 MMOL/L (24-32); TOTAL PROTEIN 8.7 G/DL (6.4-8.2); eCRCL 86 ML/MIN; eGFR 67 ML/MIN
[2023-12-28 01:32] LABS: PRO BRAIN NATRIURETIC PEPTIDE 191 PG/ML (0-125)
[2023-12-28] MEDS: methylPREDNISolone sod succ 125mg/2ml vial IV ONE (02:23)
[2023-12-28 03:06] LABS: BILIRUBIN,URINE SMALL (Neg); CLARITY,URINE CLEAR (Clear); COLOR,URINE YELLOW (Yellow); GLUCOSE, URINE >=1000 mg/dl (Neg); KETONES,URINE 15 mg/dl (Neg); LEUKOCYTE ESTERASE ,URINE NEGATIVE (Neg); NITRITES, URINE NEGATIVE (Neg); OCCULT BLOOD,URINE TRACE-INTACT (Neg); PROTEIN,URINE NEGATIVE (Neg); UROBILINOGEN,URINE 0.2 E.U/dL (0.2-1.0)
[2023-12-28 03:12] LABS: UA COLLECTION TYPE URINAL
[2023-12-28 03:14] LABS: BACTERIA,URINE FEW /HPF (Neg); MUCUS STRANDS NONE SEEN /LPF (Neg); SQUAMOUS EPITHELIAL CELL,UR FEW /LPF (FEW); WBC,URINE 0-4 /HPF (0-4)
[2023-12-28] MEDS: ipratropium/albuterol 3ml nebule NEB ONE (03:18)
[2023-12-28 03:19] VITALS: PULSE 96; RESP 18; O2SAT 93
[2023-12-28 03:36] VITALS: PULSE 101; RESP 18; O2SAT 97
[2023-12-28] MEDS ORDERED: PRED20TA PO (03:59)
[2023-12-28] MEDS ORDERED: AZIT-164 PO (03:59)
[2023-12-28] MEDS ORDERED: ALBU18HF2 IH (03:59)
[2023-12-28 04:19] VITALS: BP 142/76; PULSE 98; RESP 24; TEMP 98.3; O2SAT 94
== END 2023-12-28 04:21 | disposition home or self-care (01) ==
LOC: ER 00:22
DX: J45.901 Unspecified asthma with (acute) exacerbation (principal); Z20.822 Contact with and (suspected) exposure to COVID-19; I10 Essential (primary) hypertension; E11.9 Type 2 diabetes mellitus without complications; F31.9 Bipolar disorder, unspecified; Z91.013 Allergy to seafood; Z91.041 Radiographic dye allergy status; Z88.0 Allergy status to penicillin; Z88.1 Allergy status to other antibiotic agents; Z91.018 Allergy to other foods; Z79.899 Other long term (current) drug therapy; Z79.1 Long term (current) use of non-steroidal anti-inflammatories (NSAID); Z79.84 Long term (current) use of oral hypoglycemic drugs; Z79.2 Long term (current) use of antibiotics
CPT/HCPCS: 36415; 71045; 80053; 81001; 83605; 83880; 84145; 84484; 85025; 87040; 87811; 93005; 94640; 96361; 96374; 99285; A6258; J2919; J7030; 94760; A4615

== ENCOUNTER 2024-02-19 04:32 | Emergency (ER) | payer MEDICAID ==
[~2024-02-19] VITALS: Ht 180.3 cm; Wt 268.0 kg
[~2024-02-19 04:32] MED LIST changes: +ALBU18HF2 IH
[2024-02-19 04:46] VITALS: TEMP 99.3
[2024-02-19] MEDS: HYDROcodone/acetaminophen 5mg/325mg tablet PO ONE (05:30)
[2024-02-19] MEDS ORDERED: SULF1TAB49 PO (05:38)
[2024-02-19] MEDS ORDERED: DOXY200T8 PO (05:38)
[2024-02-19 05:50] VITALS: BP 136/88; PULSE 98; RESP 20; O2SAT 98
== END 2024-02-19 05:55 | disposition home or self-care (01) ==
LOC: ER 04:33
DX: L03.115 Cellulitis of right lower limb (principal); I10 Essential (primary) hypertension; E11.9 Type 2 diabetes mellitus without complications; F31.9 Bipolar disorder, unspecified; Z91.013 Allergy to seafood; Z91.041 Radiographic dye allergy status; Z88.0 Allergy status to penicillin; Z88.1 Allergy status to other antibiotic agents; Z79.899 Other long term (current) drug therapy; Z79.1 Long term (current) use of non-steroidal anti-inflammatories (NSAID); Z79.84 Long term (current) use of oral hypoglycemic drugs
CPT/HCPCS: 99284; A6250; A6253; A6449

== ENCOUNTER 2024-02-21 18:21 | Emergency (ER) | payer MEDICAID ==
[~2024-02-21] VITALS: Ht 180.3 cm; Wt 254.6 kg
[~2024-02-21 18:21] MED LIST changes: +DOXY200T8 PO; +SULF1TAB49 PO
[2024-02-21 18:38] VITALS: BP 165/78; PULSE 98; RESP 20; TEMP 98.6; O2SAT 98
[2024-02-22] MEDS ORDERED: CEPH-585 PO (02:13)
[2024-02-22] MEDS ORDERED: NYST30CR34 TOP (02:13)
== END 2024-02-21 20:03 | disposition left against medical advice (07) ==
LOC: ER 18:21
DX: K92.1 Melena (principal); L03.115 Cellulitis of right lower limb; Z53.21 Procedure and treatment not carried out due to patient leaving prior to being seen by health care provider

== ENCOUNTER 2024-02-21 22:26 | Emergency (ER) | payer MEDICAID ==
[~2024-02-21] VITALS: Ht 180.3 cm; Wt 256.8 kg
[2024-02-22] MEDS ORDERED: NYST30CR34 TOP (02:13)
[2024-02-22] MEDS ORDERED: CEPH-585 PO (02:13)
[2024-02-22] MEDS: NYSTATIN CREAM - 30GM TUBE TP ONE (02:34)
[2024-02-22] MEDS: cephalexin 250mg capsule PO ONE (02:35)
[2024-02-22 02:51] VITALS: BP 118/76; PULSE 84; RESP 22; TEMP 98.6; O2SAT 94
== END 2024-02-22 02:53 | disposition home or self-care (01) ==
LOC: ER 22:27
DX: L97.119 Non-pressure chronic ulcer of right thigh with unspecified severity (principal); I10 Essential (primary) hypertension; E11.9 Type 2 diabetes mellitus without complications; F31.9 Bipolar disorder, unspecified; Z91.013 Allergy to seafood; Z91.041 Radiographic dye allergy status; Z88.0 Allergy status to penicillin; Z88.1 Allergy status to other antibiotic agents; Z91.030 Bee allergy status; Z79.899 Other long term (current) drug therapy; Z79.2 Long term (current) use of antibiotics; Z88.5 Allergy status to narcotic agent; Z88.8 Allergy status to other drugs, medicaments and biological substances
CPT/HCPCS: 99283; A6213; A6253

== ENCOUNTER 2024-02-26 12:11 | Emergency (ER) | payer MEDICAID ==
[~2024-02-26] VITALS: Ht 180.3 cm; Wt 256.8 kg
[~2024-02-26 12:11] MED LIST changes: +CEPH-585 PO; +NYST30CR34 TOP
[2024-02-26 14:09] LABS: BASOPHILS # (AUTO) 0.1 X10'3 (0-0.2); BASOPHILS % (AUTO) 0.2 % (0-1); EOSINOPHILS # (AUTO) 0.2 X10'3 (0-0.9); EOSINOPHILS % (AUTO) 0.7 % (0-6); HEMATOCRIT 39.5 % (42.0-52.0); HEMOGLOBIN 12.5 g/dl (14.0-17.9); LYMPHOCYTES # (AUTO) 0.6 X10'3 (1.1-4.8); LYMPHOCYTES % (AUTO) 2.2 % (21-51); MEAN CORPUSCULAR HEMOGLOBIN 24.2 PG (27.0-31.0); MEAN CORPUSCULAR HGB CONC 31.7 g/dL (33.0-36.5); MEAN CORPUSCULAR VOLUME 76.3 FL (78-98); MEAN PLATELET VOLUME 8.4 FL (7.4-10.4); MONOCYTES # (AUTO) 1.3 X10'3 (0-0.9); MONOCYTES % (AUTO) 4.7 % (2-12); NEUTROPHILS # (AUTO) 26.7 X10'3 (1.8-7.7); NEUTROPHILS % (AUTO) 92.2 % (42-75); PLATELET COUNT 219 X10'3 (140-440); RED BLOOD COUNT 5.17 X10'6 (4.70-6.10)
[2024-02-26 14:31] LABS: ALBUMIN 1.1 G/DL (3.4-5.0); ANION GAP 18 (8-16); BLOOD UREA NITROGEN 112 MG/DL (7-18); CALCIUM 7.2 MG/DL (8.5-10.1); CHLORIDE 83 MMOL/L (99-107); GLUCOSE 168 MG/DL (70-104); PRO BRAIN NATRIURETIC PEPTIDE 3729 PG/ML (0-125); TOTAL CARBON DIOXIDE 18.8 MMOL/L (24-32); eCRCL 17 ML/MIN; eGFR 11 ML/MIN
[2024-02-26 14:33] LABS: POTASSIUM 4.6 MMOL/L (3.5-5.1)
[2024-02-26 14:41] LABS: ANISOCYTOSIS 2+; MICROCYTOSIS 1+; PLATELET ESTIMATE NORMAL; TOTAL CELLS COUNTED 100
[2024-02-26 14:43] LABS: SODIUM 120 MMOL/L (135-145)
[2024-02-26 14:53] LABS: BILIRUBIN,URINE MODERATE (Neg); CLARITY,URINE CLOUDY (Clear); COLOR,URINE YELLOW (Yellow); GLUCOSE, URINE 100 mg/dl (Neg); KETONES,URINE NEGATIVE (Neg); LEUKOCYTE ESTERASE ,URINE NEGATIVE (Neg); NITRITES, URINE NEGATIVE (Neg); OCCULT BLOOD,URINE NEGATIVE (Neg); PH,URINE 5.5 (4.8-8.0); PROTEIN,URINE TRACE mg/dl (Neg)
[2024-02-26] MEDS: CefTRIAXone 2gm/D5W 50ml BAG 50 ML IV ONE (14:54)
[2024-02-26 14:57] LABS: UA COLLECTION TYPE VOIDED
[2024-02-26 15:03] LABS: FINE GRANULAR CAST 0-3 /LPF (NEGATIVE)
[2024-02-26 15:04] LABS: BACTERIA,URINE 2+ /HPF (Neg); RBC,URINE 0-2 /HPF (0-2); RENAL CELLS, URINE MODERATE /HPF; TRANSITIONAL EPI CELLS,URINE FEW /HPF
[2024-02-26 15:05] LABS: MUCUS STRANDS FEW /LPF (Neg); SQUAMOUS EPITHELIAL CELL,UR MODERATE /LPF (FEW)
[2024-02-26] MEDS: vancomycin/NS 1 GM ADD-VANTAGE 250 ML X 1 DOSE IV ONE (15:15)
[2024-02-26] MEDS: piperacillin/tazo 4.5gm/100ml 100 ML IV ONE (16:49)
[2024-02-26] MEDS: normal saline 1000ml 1,000 ML IV ONE ×2 (17:06)
[2024-02-26 18:14] VITALS: TEMP 97.7
[2024-02-26 19:50] VITALS: BP 105/40; PULSE 74; RESP 18; O2SAT 96
== END 2024-02-26 19:52 | disposition admitted as inpatient to this hospital (09) ==
LOC: ER 12:12
DX: M72.6 Necrotizing fasciitis (principal); N17.9 Acute kidney failure, unspecified; I10 Essential (primary) hypertension; E11.9 Type 2 diabetes mellitus without complications; J45.909 Unspecified asthma, uncomplicated; G47.30 Sleep apnea, unspecified; F32.A Depression, unspecified; Z60.2 Problems related to living alone; Z88.1 Allergy status to other antibiotic agents; Z88.0 Allergy status to penicillin; Z91.018 Allergy to other foods; Z91.041 Radiographic dye allergy status; Z79.899 Other long term (current) drug therapy; Z79.2 Long term (current) use of antibiotics
CPT/HCPCS: 36415; 71045; 80048; 81001; 83605; 83880; 84145; 85007; 85025; 87040; 87088; 96365; 96366; 96368; 99291; A6258; J0696; J2543; J3370; J7030; 99285; A6212; A6590